=== PATIENT | female | born 1980 | race Caucasian/White ===

== ENCOUNTER 2018-01-16 19:37 | Emergency (ER) | payer BC ==
[~2018-01-16] VITALS: Ht 172.7 cm; Wt 84.1 kg
[2018-01-16 19:58] VITALS: Ht 172.7 cm; Wt 84.1 kg
[2018-01-16] MEDS ORDERED: CETIRIZINE HCL5 MG PO (20:00)
[2018-01-16] MEDS ORDERED: IMITREX100 MG PO (20:00)
[2018-01-16] MEDS ORDERED: PAMELOR75 MG (20:00)
[2018-01-16] MEDS ORDERED: BACTRIM DS TABL1 TAB PO (20:20)
[2018-01-16 20:58] VITALS: BP 118/72
== END 2018-01-16 20:53 | disposition home or self-care (01) ==
LOC: D.ER 19:37
DX: S80.02XA Contusion of left knee, initial encounter (principal); S80.12XA Contusion of left lower leg, initial encounter; W20.8XXA Other cause of strike by thrown, projected or falling object, initial encounter; Y93.89 Activity, other specified; Y92.017 Garden or yard in single-family (private) house as the place of occurrence of the external cause; L03.116 Cellulitis of left lower limb

== ENCOUNTER → 2018-01-28 17:21 | Outpatient (CLI) | payer BC ==
[2018-01-16 19:58] VITALS: BMI 28.1
[~2018-01-28 17:21] MED LIST: BACTRIM DS TABL1 TAB PO; CETIRIZINE HCL5 MG PO; IMITREX100 MG PO; PAMELOR75 MG
== END | disposition home or self-care (01) ==
LOC: D.MRI 17:21
DX: M25.562 Pain in left knee (principal)